=== PATIENT | female | born 1995 | race Asian ===

== ENCOUNTER 2018-04-14 06:32 | Inpatient (IN) | payer MEDICAID ==
--- NOTE | 2018-04-14 07:29 | HP ---
General Information - Reason for Visit contractions regular q 3 this am. gfm - General Information Maternal Age: 22 Grav: 3 Para: 1 SAB: 1 IEA: 1 Estimated Due Date: 04/20/18 Determined By: Early Ultrasound Maternal Blood Type and Rh: O Positive - Results this Serology/RPR Result: Non-Reactive Rubella Result: Immune HBsAg Result: Positive HIV Result: Negative GBS Culture Result: Positive Past Medical History Delivery History: Hx Uncomplicated Vaginal Delivery Pertinent Past Medical History: See Records - hep b + Pertinent Past Surgical History: None Pertinent Family History: Non-Contributory - Antepartal Records Antepartal Records: Reviewed, Uncomplicated Review of Systems Constitutional: Uncomfortable CV Complaint: No Respiratory: Shortness of Breath: No Gastrointestinal: No Nausea/Vomiting Genitourinary: Leaking Fluid, No Bleeding Musculoskeletal: Contractions Neurological: No Headache Movement: Normal Exam Allergies/Adverse Reactions: Allergies No Known Allergies Allergy (Verified 01/26/15 14:22) - Measurements Height: 5 ft Weight: 115 lb Weight in lbs: [phone] Body Mass Index (BMI): 22.4 - Exam Breast: Breast Exam Deferred Extremities: No Edema Heart: Normal Rhythm/Heart Sounds HEENT: No Significant Findings Lungs: Clear Bilaterally Reflexes: DTR 2+ Targeted Exam Findings Cervical Exam: 4cm Effacement: 80% Station: -1 Presenting Part: Vertex Membrane Status: Leaking Amniotic Fluid Evaluation: ROM Plus Pending EFM Findings - External Monitor Findings Baseline Heart Rate: 130 External Monitor Findings: Accelerations Present, Variability Moderate Contractions: Regular, Moderate, 45-90 Seconds Assessment/Plan - Obstetrical Risk Factors Obstetrical Risk Factors: GBS Positive - Plan Plan: Antibiotic Prophylaxis, Admit - Anticipate Vaginal Delivery
[2018-04-14] MEDS ORDERED: Penicillin G Potassium IV* 5,000,000 UNITS in NS 0.9% 100 ML* 100 ML IVPB ONE (07:30)
[2018-04-14] MEDS ORDERED: Lactated Ringers 1000 ML Bag* 1,000 ML IV SCH ×2 (08:00→15:00)
[2018-04-14] MEDS: Lactated Ringers 1000 ML Bag* 1,000 ML IV ONE ×2 (08:34→12:41)
[2018-04-14] MEDS ORDERED: Oxytocin in LR* 20 UNITS/1,000 ML BAG IVPB SCH ×2 (09:00→15:00)
[2018-04-14 09:43] LABS: ABS Basophils 0 10^3/ul (0-0.2); ABS Eosinophils 0 10^3/ul (0-0.6); ABS Lymphocytes 2.1 10^3/ul (1.0-4.8); ABS Monocytes 0.4 10^3/ul (0-0.8); ABS Neutrophils 6.7 10^3/ul (1.5-7.7); ABS Nucleated RBC 0 10^3/ul; Eosinophil % 0.2 %; Hematocrit 42 % (35-47); Hemoglobin 14.2 g/dl (12.0-16.0); Lymphocyte % 23.1 %; Mean Corpuscular HGB Conc 34 g/dl (31-36); Mean Corpuscular Hemoglobin 34 pg (27-31); Mean Corpuscular Volume 99 fL (80-97); Mean Platelet Volume 7.9 fL (7.4-10.4); Nucleated Red Blood Cells % 0.1; Platelet Count 178 10^3/ul (150-450); Red Blood Count 4.19 10^6/ul (4.00-5.40); Red Cell Distribution Width 14 % (10.5-15); White Blood Count 9.2 10^3/ul (3.5-10.8)
[2018-04-14] MEDS ORDERED: Penicillin G Potassium IV* 2,500,000 UNITS in NS 0.9% 100 ML* 100 ML IVPB SCH (12:30)
[2018-04-14] MEDS ORDERED: fentaNYL* 50 MCG/ML 2 ML VIAL (100 MCG VIAL) ONE (12:44)
[2018-04-14] MEDS ORDERED: Glycerin ADULT SUPP PR PRN (14:06)
[2018-04-14] MEDS ORDERED: Acetaminophen TAB* 325 MG PO PRN (14:06)
[2018-04-14] MEDS ORDERED: Dibucaine 1% 28.35 GM TUBE PR PRN (14:06)
[2018-04-14] MEDS ORDERED: Witch Hazel PAD* JAR TOPICAL PRN (14:06)
[2018-04-14] MEDS ORDERED: Simethicone TAB* 80 MG TAB.CHEW PO SCH (17:30)
--- NOTE | 2018-04-14 19:34 | PROCNOTE ---
[facility] OB: Delivery Note - Delivery A Date of : 04/14/18 Time of : 13:57 Sex: Male Weight at : 7 lb 3 oz Score 1 Minute: 9 Score 5 Minutes: 9 Gestational Age in Weeks and Days at Delivery: 39 Weeks and 1 Days Delivery Method: Spontaneous Vaginal Labor: Spontaneous Amniotic Fluid: Clear Estimated Blood Loss: 200 Anesthesia/Analgesia: ITF/Spinal for Labor Delivered By: Jose Wallace - Nursery Level of Nursery: Regular/Bedside - Perineum Perineal Injury: None/Intact - Events Delivery Events of Note: Pitocin During Labor, Pitocin Only After Delivery Delivery Events of Note Comment: pt pushed well with rapid descent . decreased just before delivery with tight nuchal cord. looped off post delivery
[2018-04-14] MEDS: Docusate CAP* 100 MG PO SCH (21:08)
[2018-04-15] MEDS: Ibuprofen TAB* 600 MG PO PRN ×4 (01:50→23:30)
[2018-04-15 06:43] LABS: ABS Basophils 0 10^3/ul (0-0.2); ABS Eosinophils 0 10^3/ul (0-0.6); ABS Lymphocytes 2.8 10^3/ul (1.0-4.8); ABS Monocytes 0.7 10^3/ul (0-0.8); ABS Neutrophils 7.9 10^3/ul (1.5-7.7); ABS Nucleated RBC 0 10^3/ul; Eosinophil % 0.2 %; Hematocrit 33 % (35-47); Hemoglobin 11.4 g/dl (12.0-16.0); Lymphocyte % 24.3 %; Mean Corpuscular HGB Conc 35 g/dl (31-36); Mean Corpuscular Hemoglobin 34 pg (27-31); Mean Corpuscular Volume 97 fL (80-97); Mean Platelet Volume 6.7 fL (7.4-10.4); Nucleated Red Blood Cells % 0.1; Platelet Count 173 10^3/ul (150-450); Red Blood Count 3.39 10^6/ul (4.00-5.40); Red Cell Distribution Width 14 % (10.5-15); White Blood Count 11.4 10^3/ul (3.5-10.8)
[2018-04-15] MEDS: Docusate CAP* 100 MG PO SCH ×3 (08:31→21:18)
[2018-04-15] MEDS ORDERED: Tetan/Diph/Pertus SYR(Tdap)* 0.5 ML SYR(BOOSTRIX) use SYR IM ONE (09:00)
[2018-04-15] MEDS ORDERED: Ferrous Gluconate TAB* 324 MG TAB PO SCH (09:00)
[2018-04-16 07:38] VITALS: BP 101/62
[2018-04-16] MEDS: Docusate CAP* 100 MG PO SCH (08:49)
== END 2018-04-16 10:13 | disposition home or self-care (01) | DRG 560 ==
LOC: MCHOBOUT 06:32 → MCHOB 07:21
PROVIDERS: ADMIT Obstetrics & Gynecology; ATTEND Obstetrics & Gynecology
PROC: 10E0XZZ Delivery of Products of Conception, External Approach (ICD-10-PCS; principal; 2018-04-14)
PROC: 10907ZC Drainage of Amniotic Fluid, Therapeutic from Products of Conception, Via Natural or Artificial Opening (ICD-10-PCS; 2018-04-14)
DX: O99.824 Streptococcus B carrier state complicating childbirth (principal); Z37.0 Single live birth; O69.81X0 Labor and delivery complicated by cord around neck, without compression, not applicable or unspecified; Z3A.39 39 weeks gestation of pregnancy
CPT/HCPCS: 36415; 84112; 85025; 86850; 86900; 86901; A9270-GY; J2540; J3010

== ENCOUNTER 2019-03-26 14:44 | Emergency (ER) | payer OTHER ==
[2019-03-26 15:21] VITALS: BP 100/64
--- NOTE | 2019-03-26 15:30 | UC ---
Back Pain HPI - HPI Summary HPI Summary: 23 yo female presents with back and finger pain s/p fall. She tells me that earlier today at work she was in a chair and fell backwards landing on the ice on her lower back and injuring her right index finger when she put her hands out. She has not taken anything OTC for her discomfort. Movement makes her pain worse. She denies radiation of pain, numbness, tingling, saddle anesthesia, constipation, or loss of bowel/bladder control. - History of Current Complaint Chief Complaint: UCBackPain Stated Complaint: BACK, FINGER INJURY Time Seen by Provider: 03/26/19 15:30 Hx Obtained From: Patient Hx Last Menstrual Period: IUD Onset/Duration: Sudden Onset Severity Initially: Moderate Severity Currently: Moderate Pain Intensity: 7 Pain Scale Used: 0-10 Numeric - Allergies/Home Medications Allergies/Adverse Reactions: Allergies Allergy/AdvReac Type Severity Reaction Status Date / Time No Known Allergies Allergy Verified 03/26/19 15:21 PMH/Surg Hx/FS Hx/Imm Hx - Additional Past Medical History Additional PMH: None - Surgical History Surgical History: None - Family History Known Family History: Positive: None - Social History Occupation: Employed Full-time Lives: With Family Alcohol Use: None Substance Use Type: None Smoking Status (MU): Never Smoked Tobacco Have You Smoked in the Last Year: No - Immunization History Most Recent Influenza Vaccination: 02/08/18 Most Recent Pneumonia Vaccination: Unknown Review of Systems All Other Systems Reviewed And Are Negative: No Constitutional: Positive: Negative Skin: Positive: Negative Respiratory: Positive: Negative Cardiovascular: Positive: Negative Gastrointestinal: Positive: Negative Genitourinary: Positive: Negative Neurovascular: Positive: Negative Musculoskeletal: Positive: Other: - Back pain. Right index finger pain Neurological: Positive: Negative Psychological: Positive: Negative Physical Exam - Summary Physical Exam Summary: GENERAL: NAD. WDWN. No pain distress. SKIN: No rashes, sores, lesions, or open wounds. NECK: Supple. FROM. Nontender. No lymphadenopathy. CHEST: CTAB. No r/r/w. No accessory muscle use. Breathing comfortably and in no distress. CV: RRR. Pulses intact. Cap refill <2seconds MSK: TTP over lumbar paraspinal muscles. Pain with flexion and extension of spine. Positive SLR b/l for low back pain without radiation. Strength 5/5 B/L LEs including dorsiflexion and plantar flexion. FROM B/L LEs. No edema. RIGHT index finger: FROM at MCP, PIP, and DIP. NTTP. No edema. NEURO: Alert. Sensations intact B/L LEs L3-S1. Reflexes intact PSYCH: Age appropriate behavior. Triage Information Reviewed: Yes Vital Signs: Initial Vital Signs Temp 98.9 F 03/26/19 15:16 Pulse 73 03/26/19 15:16 Resp 14 03/26/19 15:16 BP 100/64 03/26/19 15:16 Pulse Ox 98 03/26/19 15:16 Vital Signs Reviewed: Yes Diagnostics - Radiology Lumbar XR Radiology Interpretation Completed By: Radiologist Summary of Radiographic Findings: IMPRESSION: #. No radiographic evidence for lumbar sacral spine traumatic injury. Finger XR Radiology Interpretation Completed By: Radiologist Summary of Radiographic Findings: REPORT AND IMPRESSION: #. Suggestion of a subtle nondisplaced fracture at the radial base of the distal phalanx without visualized subchondral bone discontinuity or incongruity. Surrounding soft tissue swelling. Normal articular alignment. Back Pain Course/Dx - Course Course Of Treatment: XRs as above. Regarding her lower back - suspect contusion from fall earlier today. She was given toradol IM in the clinic and advised to rest and ice/heat to the area. Gentle stretching and ROM. Will rx for naproxen. Regarding her finger - XR as above. She was placed in a finger splint and advised to use this as much as possible for the next 2-3 weeks and f/u with Orthopedics if symptoms do not improve or if they worsen. - Differential Dx/Diagnosis Provider Diagnosis: Fall, Low back pain, Phalanx, distal fracture of finger Discharge ED - Sign-Out/Discharge Documenting (check all that apply): Patient Departure All imaging exams completed and their final reports reviewed: Yes - Discharge Plan Condition: Stable Disposition: HOME Prescriptions: Naproxen [Naproxen 500 mg tab] 500 mg PO BID PRN #14 skip.dr WANG Reason: Pain - Moderate Patient Education Materials: Finger Fracture (ED), Acute Low Back Pain (ED), Lower Back Exercises (ED) Referrals: Oni Ferguson MD [Medical Doctor] - If Needed Yessi Bonilla MD [Primary Care Provider] - Additional Instructions: If you develop a fever, shortness of breath, chest pain, new or worsening symptoms - please call your PCP or go to the ED immediately. DO NOT TAKE IBUPROFEN/ADVIL WITH THE NAPROXEN THESE MEDICATIONS ARE RELATED AND MAY INTERACT 1) Rest and apply ice/heat to your back to decrease pain and stiffness 2) Practice gentle stretching and exercises to keep your lower back muscles from tightening and being stiff 3) You have a very small fracture to your finger - use the finger splint as much as possible for the next 2-3 weeks. If you develop worsening pain or swelling to your finger, please call Orthopedics at the number below to schedule an appointment for a recheck - Billing Disposition and Condition Condition: STABLE Disposition: Home
[2019-03-26] MEDS ORDERED: Ketorolac INJ* 30 MG/ML 1 ML VIAL IM ONE (15:35)
== END 2019-03-26 16:45 | disposition home or self-care (01) ==
LOC: UCEAST 14:44
DX: S62.630A Displaced fracture of distal phalanx of right index finger, initial encounter for closed fracture (principal); M54.5 Low back pain; M79.89 Other specified soft tissue disorders; W07.XXXA Fall from chair, initial encounter; Y92.9 Unspecified place or not applicable; Y99.0 Civilian activity done for income or pay
CPT/HCPCS: 72110; 73140; 96372; 99212; G0463; J1885